=== PATIENT | female | born 1945 ===

== ENCOUNTER → 2021-02-04 16:13 | Outpatient (CLI) | payer OTHER | END | disposition home or self-care (01) | LOC: RAD 16:13 | PROVIDERS: ATTEND General Practice | DX: R07.89 Other chest pain (principal); M84.48XA Pathological fracture, other site, initial encounter for fracture ==

== ENCOUNTER 2022-10-31 11:38 | Outpatient (CLI) | payer OTHER | END 2022-10-31 11:47 | disposition home or self-care (01) | LOC: RAD 11:38 | PROVIDERS: ATTEND General Practice | DX: M79.603 Pain in arm, unspecified (principal) ==